=== PATIENT | male | born 1965 | race Caucasian/White ===

== ENCOUNTER 2017-05-09 19:34 | Emergency (ER) | payer OTHER ==
[~2017-05-09] VITALS: Ht 180.3 cm; Wt 90.7 kg
[2017-05-09] MEDS ORDERED: ASPIRIN325 MG PO (19:56)
--- NOTE | 2017-05-11 21:44 | EKG ---
[facility] [address] [facility] [place] [address] Signed Normal sinus rhythm Low voltage QRS Borderline ECG No previous ECGs available Confirmed by JUSTIN ZALDIVAR MD ([id number] on 05/11/2017 9:44:33 PM Electronically Signed By: JUSTIN ZALDIVAR MD 05/11/17 2144 PATIENT NAME: GERALDINE LINARES Electrocardiogram DATE OF : 63 PHYSICIAN: JUSTIN ZALDIVAR MD REPORT #: [id number] REPORT IS CONFIDENTIAL AND NOT TO BE RELEASED WITHOUT AUTHORIZATION
== END 2017-05-09 21:15 | disposition home or self-care (01) ==
LOC: ED 19:34
PROC: 0T9B70Z Drainage of Bladder with Drainage Device, Via Natural or Artificial Opening (ICD-10-PCS; principal; 2017-05-09)
DX: T43.621A Poisoning by amphetamines, accidental (unintentional), initial encounter (principal); F17.200 Nicotine dependence, unspecified, uncomplicated; Z79.82 Long term (current) use of aspirin
CPT/HCPCS: 51701; 51798; 93005; 93010; 99283